=== PATIENT | male | born 1950 | race Two or more races ===

== ENCOUNTER 2018-10-03 10:12 | Emergency (ER) | payer OTHER ==
[~2018-10-03] VITALS: Ht 170.2 cm; Wt 56.2 kg
[2018-10-03] MEDS ORDERED: CARB-39 PO (12:08)
[2018-10-03] MEDS ORDERED: QUET25TA PO (12:08)
[2018-10-03] MEDS ORDERED: ACETAMINOPHEN 325 MG TABLET PO ONE (12:30)
[2018-10-03 15:20] VITALS: BP 184/98
== END 2018-10-03 15:49 | disposition home or self-care (01) ==
LOC: EMS 10:13
DX: S09.90XA Unspecified injury of head, initial encounter (principal); W18.39XA Other fall on same level, initial encounter; Y93.89 Activity, other specified; Y92.89 Other specified places as the place of occurrence of the external cause; Y99.8 Other external cause status
CPT/HCPCS: 70450

== ENCOUNTER 2020-04-25 07:51 | Emergency (ER) | payer MEDICARE, OTHER ==
[~2020-04-25] VITALS: Ht 165.1 cm; Wt 55.9 kg
[~2020-04-25 07:51] MED LIST: CARB-39 PO; QUET25TA PO
[2020-04-25] MEDS ORDERED: AmLODIPine BESYLATE 5 MG TABLET PO ONE (10:00)
[2020-04-25] MEDS: AmLODIPine BESYLATE 5 MG TABLET PO ONE ×2 (10:35→10:46)
[2020-04-25 10:50] LABS: BASOPHILS % (AUTO) 0.7 % (0.0-2.0); EOSINOPHILS % (AUTO) 1.7 % (1.0-6.0); HEMOGLOBIN 14.6 g/dL (13.5-17.5); LYMPHOCYTES # (AUTO) 1.9 K/uL (1.0-4.8); LYMPHOCYTES % (AUTO) 32.5 % (22.0-44.0); MEAN CORPUSCULAR HEMOGLOBIN 32.3 pg (26.0-34.0); MEAN CORPUSCULAR HGB CONC 34.7 G/dL (31.0-37.0); MEAN CORPUSCULAR VOLUME 93 fL (80-100); MONOCYTES # (AUTO) 0.3 K/uL (0.1-1.0); MONOCYTES % (AUTO) 5.7 % (2.0-9.0); NEUTROPHILS # (AUTO) 3.5 K/uL (1.8-7.7); NEUTROPHILS % (AUTO) 59.4 % (40.0-70.0); PLATELET COUNT (AUTO) 124 K/uL (150-450); RED BLOOD CELL COUNT(AUTO) 4.51 MIL/uL (4.50-5.90); RED CELL DISTRIBUTION WIDTH 13.3 % (11.5-14.5)
[2020-04-25 11:02] LABS: ANION GAP 6 mmol/L (8-16); CALCIUM, TOTAL 9.8 mg/dL (8.8-10.5); CARBON DIOXIDE 32 mmol/L (22-29); CHLORIDE 102 mmol/L (98-107); CREATININE 0.98 mg/dL (0.60-1.30); GLOMERULAR FILTR. RATE CALC > 60 mL/min (>60); GLUCOSE,RANDOM 103 mg/dL (70-110); POTASSIUM 4.1 mmol/L (3.5-5.1); SODIUM SERUM 140 mmol/L (136-145); UREA NITROGEN, BLOOD 15 mg/dL (7-18)
[2020-04-25 11:08] LABS: ALANINE AMINOTRANSFERASE 23 U/L (12-78); ALBUMIN 4.7 g/dL (3.4-5.0); ALKALINE PHOSPHATASE 64 U/L (46-116); ASPARTATE AMINOTRANSFERASE 16 U/L (15-37); BILIRUBIN,TOTAL 0.9 mg/dL (0.1-1.0); TOTAL PROTEIN, SERUM 8.9 g/dL (6.4-8.2)
[2020-04-25 14:03] VITALS: BP 154/102
== END 2020-04-25 14:27 | disposition home or self-care (01) ==
LOC: EMS 07:51
DX: S70.02XA Contusion of left hip, initial encounter (principal); S00.03XA Contusion of scalp, initial encounter; I10 Essential (primary) hypertension; Z79.899 Other long term (current) drug therapy; W01.0XXA Fall on same level from slipping, tripping and stumbling without subsequent striking against object, initial encounter; Y93.89 Activity, other specified; Y92.89 Other specified places as the place of occurrence of the external cause; Y99.8 Other external cause status
CPT/HCPCS: 70450; 73503; 73700; 93005

== ENCOUNTER 2020-04-27 07:56 | Emergency (ER) | payer MEDICARE ==
[~2020-04-27] VITALS: Ht 167.6 cm; Wt 60.0 kg
[2020-04-27] MEDS ORDERED: AMLO2.5T96 PO (08:04)
[2020-04-27 09:33] VITALS: BP 160/98
== END 2020-04-27 10:57 | disposition home or self-care (01) ==
LOC: EMS 08:20
DX: S13.4XXA Sprain of ligaments of cervical spine, initial encounter (principal); W19.XXXA Unspecified fall, initial encounter; Y93.89 Activity, other specified; Y92.89 Other specified places as the place of occurrence of the external cause; Y99.8 Other external cause status
CPT/HCPCS: 70450; 72125

== ENCOUNTER 2020-10-06 14:44 | Emergency (ER) | payer MEDICARE ==
[~2020-10-06] VITALS: Ht 162.6 cm; Wt 59.1 kg
[~2020-10-06 14:44] MED LIST changes: +AMLO2.5T96 PO
[2020-10-06 16:10] VITALS: BP 128/87
== END 2020-10-06 17:23 | disposition home or self-care (01) ==
LOC: EMS 14:47
DX: S83.91XA Sprain of unspecified site of right knee, initial encounter (principal); G20 Parkinson's disease; F02.80 Dementia in other diseases classified elsewhere, unspecified severity, without behavioral disturbance, psychotic disturbance, mood disturbance, and anxiety; W19.XXXA Unspecified fall, initial encounter; Y93.89 Activity, other specified; Y92.89 Other specified places as the place of occurrence of the external cause; Y99.8 Other external cause status